=== PATIENT | female | born 2000 | race Hispanic/Latino ===

== ENCOUNTER 2021-02-20 08:08 | Inpatient (IN) | payer SELFPAY ==
[2021-02-20] MEDS ORDERED: Ringers Lactate 1,000 ML IV PRN (08:19)
[2021-02-20] MEDS ORDERED: TERBUTALINE SULF 1 MG/1ML SQ ONE (08:27)
[2021-02-20] MEDS ORDERED: PENICILLIN G POT 5 MU/100 ML VIAL IV ONE (08:27)
[2021-02-20] MEDS ORDERED: Ringers Lactate 1,000 ML IV SCH (09:00)
[2021-02-20 09:06] LABS: Urine Appearance CLEAR (Clear); Urine Bilirubin NEGATIVE (Negative); Urine Blood 2+ (Negative); Urine Color YELLOW (Yellow); Urine Glucose NEGATIVE (Negative); Urine Protein NEGATIVE (Negative); Urine Specific Gravity <=1.005 (1.005-1.030); Urine Urobilinogen 0.2 mg/dL (0.2-1.0); Urine pH 6.5 (5.0-7.0)
[2021-02-20] MEDS ORDERED: PENICILLIN G POT 5 MU/VIAL IV ONE (09:08)
[2021-02-20 09:25] LABS: Absolute Lymphocytes (CBC) 1.3 K/uL (0.7-4.9); Basophils % 0.3 % (0-1.3); Hematocrit 31.4 % (36.0-45.0); Lymphocytes % 13.7 % (15.3-44.8); MPV 12.2 fL (7.6-11.3); RBC Red Blood Cell Count 3.51 M/uL (3.86-4.86)
--- NOTE | 2021-02-20 09:27 | PREOPHP ---
Date of Admission: 02/20/2021 History Of Present Illness: Mana Ribera is a 20-year-old [place] national, no care, came i n by ambulance with bleeding and contractions. Her menstrual history, she is 35 weeks and 3 days. S he has not seen the doctor during the entire . She stated tiffany apparently last night . Family History: Noncontributory. Allergies: NO ALLERGIES NOTED. Physical Examination: Limited physical shows no problems. Baby looks good on the monitor. She is tiffany every 1 to 3 minutes, she is 3 cm. Vertex is sti ll floating. Bag of water I can feel intact. Nitrazine was positive, but she had bloody show, so th at would cause nitrazine to be falsely positive. I do not think the bag of water is broken. We are getting an ultrasound. Her fundal height is slightly less than 35. If she appears to be less than 3 4 weeks by ultrasound, we will probably try to transfer to high-risk center. If she is 35 or more, w e will probably keep her here. I will give her terbutaline at this point since she does not seem to be in extremely active labor. CHAYA/SABI Voice ID: [id number]
[2021-02-20 09:36] LABS: Urine Microscopic Reflex ORDER UMIC
[2021-02-20 09:38] LABS: Urine Bacteria <20 /HPF (<20); Urine RBC <5 /HPF (NONE SEEN)
[2021-02-20] MEDS ORDERED: TERBUTALINE SULF 1 MG/1ML IM ONE (09:52)
[2021-02-20] MEDS ORDERED: BETAMET ACET/BETAMET NA PH 6 MG/ML VIAL IM SCH (10:00)
--- NOTE | 2021-02-20 10:08 | RAD REPORT ---
EXAM DESCRIPTION: US - OB Compl W Biophysical Profile - 02/20/2021 9:51 am CLINICAL HISTORY: Placement and no care COMPARISON: No comparisons FINDINGS: A single cephalic presenting gestation is identified. The 4 chamber heart view has a joann l appearance. Heart rate normal. The intracranial contents and spine are grossly normal. A lef t-sided stomach bubble is seen with normal appearing bladder and kidneys. The 3 vessel cord, inserti on site and anterior abdominal wall have normal appearance. No abnormalities are identifiable. measurements are as follows: BPD:8.42 Centimeters 33 weeks 6 days HC:31.21 Centimeters 34 weeks 6 days AC:32.35 Centimeters 36 weeks 1 day HL:5.70 Centimeters 33 weeks 0 days FL:6.42 Centimeters 33 weeks 1 day The estimated gestational age (EGA) is 34 weeks 1 day with an DOUG of 04/02/2021. ratios are no rmal or within acceptable limits. The placenta is grade II, anterior in location. No low-lying or kennedy centa previa. No suspicion for accreta. The amniotic fluid volume is normal. MAGUE is 12.60 cm. Cervical canal is 3.22 cm. Internal os is closed. Maternal adnexa obscured by large uterine size. Biophysical profile: Movement 2/2 Breathing 2/2 Tone 2/2 Fluid 2/2 Total / IMPRESSION: 1. Single, cephalic gestation with an EGA of 34 weeks 1 day and an DOUG of the 04/02/2021 . 2. No abnormalities are identifiable. ratios are normal or within acceptable limits. 3. Grade II, anterior placenta with no low-lying or placenta previa. No suspicion for accreta. 4. Amniotic fluid volume is normal. MAGUE is 12.60 cm. 5. Biophysical profile score /8.
[2021-02-20 12:18] LABS: Barbiturates NEGATIVE (NEGATIVE); Benzodiazepines NEGATIVE (NEGATIVE); Cocaine NEGATIVE (NEGATIVE); METHAMPHETAM NEGATIVE (NEGATIVE); Methadone NEGATIVE (NEGATIVE); Opiates NEGATIVE (NEGATIVE); Phencyclidine NEGATIVE (NEGATIVE); THC Cannibis NEGATIVE (NEGATIVE)
--- NOTE | 2021-02-20 12:56 | DS ---
A 20-year-old 3, para 1, 34 weeks 1 day according to ultrasound, 35 weeks according to her la menstrual period. No care. Came in to our institution tiffany and very light bloody show. Cervix was 2.5 cm posterior. Nitrazine was positive, but there was blood contamination. My exam showed 2.5 cm, but the vertex and floating. Bag of water could be palpated. She is given Lesly tone, 5 million units of penicillin and 2 doses of terbutaline. Her contractions have stopped. The baby looks good. Cervical exam shows no change. The patient is advised that she can go home if she wishes to do, but that [facility] would probably be a better facility since the baby by either these measur es is premature and would do better at a tertiary care nursery. She will talk with her family and th gisell can decide what she wants to do. She is welcome to stay for several more hours or even overnight if she wishes. Diagnoses: Early premature labor, now halted, Celestone given, antibiotics given. The patient is ad vised to continue with [facility] and get her second Celestone dose tomorrow. CHAYA/SABI Voice ID: [id number] Report ID: [id number]
[2021-02-20 15:07] VITALS: O2SAT 99
[2021-02-20 15:08] VITALS: BP 110/68; TEMP 97.2
[2021-02-20 23:23] LABS: RPR (Rapid Plasma Reagin) NON-REACT (NON-REACT)
[2021-02-25 04:12] LABS: HBsAG Nonreactive (Nonreactive)
== END 2021-02-20 14:40 | disposition home or self-care (01) | DRG 833 ==
LOC: 2ND-WC 08:08
PROVIDERS: ADMIT Specialist; ATTEND Specialist
DX: O26.893 Other specified pregnancy related conditions, third trimester (principal); Z3A.34 34 weeks gestation of pregnancy; Z20.822 Contact with and (suspected) exposure to COVID-19
CPT/HCPCS: 36415; 76805; 76819; 80307; 81003; 81015; 85025; 86592; 87086; 87088; 87340; 99218; G0433; J0702; J2540; J3105; J7120; U0003

== ENCOUNTER 2021-03-06 08:56 | Inpatient (IN) | payer SELFPAY ==
[2021-03-06] MEDS ORDERED: Oxycodone HCl/Acetaminophen 1 TAB TAB PO PRN (09:37)
[2021-03-06] MEDS ORDERED: Tdap (Diph,Pertuss(Acell),Tet Vac) 0.5 ML SYR IMVAC ONE (09:37)
[2021-03-06] MEDS ORDERED: IBUPROFEN 600 MG TAB PO PRN (09:37)
[2021-03-06] MEDS ORDERED: ONDANSETRON 4 MG/2 ML VIAL IV PRN (09:37)
[2021-03-06] MEDS ORDERED: OXYTOCIN/LR 20 UNIT/1,000 ML BAG IV SCH (10:00)
[2021-03-06 10:43] LABS: Basophils % 0.5 % (0-1.3); Hematocrit 29.5 % (36.0-45.0); Lymphocytes % 7.3 % (15.3-44.8); MPV 11.2 fL (7.6-11.3); RBC Red Blood Cell Count 3.18 M/uL (3.86-4.86)
[2021-03-06 11:27] LABS: White Blood Cell Scan OK (OK)
[2021-03-06 11:28] LABS: Blood Morphology Comment NOT SEEN (NOT SEEN); Platelet Estimate ADEQ
[2021-03-06 14:05] VITALS: BMI 24.0
[2021-03-06 21:52] LABS: RPR (Rapid Plasma Reagin) NON-REACT (NON-REACT)
--- NOTE | 2021-03-07 08:41 | DS ---
Hospital Course: A 20-year-old 2, para 1 [place] national, brought in by ambulance after de livering at home, healthy-appearing female, delivered the placenta soon after admission. Inspection of the perineum showed a small first-degree laceration, local infiltration after cleaning the area wi th Betadine and then repair with 2-0 chromic running locked stitch, approximately 4 stitches. Minima l blood loss, estimated to be 300 cc or less that we saw. The patient is Rh positive. Her rubella s tatus is unknown. She has had no care, so we will offer rubella immunization and Tdap. She has been afebrile, ambulating, voiding, lochia is normal. If baby is dismissed today, she will be d ismissed also. She does have an unknown antibody and says she has had no trouble with her blood syst em. Baby does not seem to be having any jaundice or any other problems. Nonetheless, an antibody sc reen will be ordered and she can follow up in my office for her checkup, but right now it does not seem to be anything clinically significant. She requires no analgesics on dismissal. She w as mildly anemic on admission with admission hematocrit of 29.5. HIV was nonreactive. RPR for some reason was not done. If that is part of the normal routine lab, which I think it is we will order it . Final Diagnosis: Extra hospital delivery of a [place] national. No problems to this point. Antibo dy titer and antibody identification pending. CHAYA/ANTWONL Voice ID: [id number] Report ID: [id number]
[2021-03-07] MEDS ORDERED: MEASLES,MUMPS,RUBELLA VAC 0.5ML SQVAC ONE ×2 (10:08→10:35)
[2021-03-07] MEDS ORDERED: Tdap (Diph,Pertuss(Acell),Tet Vac) 0.5 ML SYR IMVAC ONE ×2 (10:08→10:35)
[2021-03-07 11:07] VITALS: BP 99/59; TEMP 96.9
--- NOTE | 2021-03-09 10:34 | PREOPHP ---
Date of Admission: 03/06/2021 History Of Present Illness: This is a 21-year-old Martiniquais female, who delivered home, brought in by ambulance. Baby is doing well. Shortly after admission, placenta was delivered intact. Her uterus was contracted down well. She had a first-degree laceration. The area was cleaned and infiltrated with local anesthetic and then 4 running locked stitches of 2-0 chromic placed. Blood loss at this p oint is estimated to be 300 cc or less. She does not know her blood type or any other type of inform ation. According to ultrasound that she had done here in January, she was supposed to be due April 02, which would make the baby about 36 weeks, but it looks further long. I think she just has a sma ll term size baby. We know really nothing of the family history. She says she has no allergies. Thania huddleston has had no surgeries. She had no complications during her and of course has not been see n during the . First she said without any type of problems. Physical Examination: HEENT: Clear. Pupils equal, round, reactive to light and accommodation. Conjunctivae well perfused . No oral, lingual, or buccal lesions. Chest and Lungs: Normal grossly. Heart: Auscultated by calculus teacher without problems. Breasts: Not examined. She has very thin, normal-sized type person. Extremities: Clear without edema, cyanosis, or clubbing. Assessment And Plan: Essentially healthy female with no care, [place] immigrant, precipito us delivery at home, delivery of the placenta after arrival here and quite stable at this point. We will observe her today, probably send her home tomorrow. Full discussion with the patient today. We will go over tomorrow about and post discharge inst ructions. CHAYA/SABI Voice ID: [id number]
[2021-03-10 03:29] LABS: HBsAG Nonreactive (Nonreactive)
== END 2021-03-07 13:40 | disposition home or self-care (01) | DRG 807 ==
LOC: 2ND-WC 08:56
PROVIDERS: ADMIT Specialist; ATTEND Specialist
PROC: 10E0XZZ Delivery of Products of Conception, External Approach (ICD-10-PCS; principal; 2021-03-06)
PROC: 0HQ9XZZ Repair Perineum Skin, External Approach (ICD-10-PCS; 2021-03-06)
DX: Z39.0 Encounter for care and examination of mother immediately after delivery (principal); Z37.0 Single live birth; O70.0 First degree perineal laceration during delivery; Z3A.36 36 weeks gestation of pregnancy; Z23 Encounter for immunization; Z20.822 Contact with and (suspected) exposure to COVID-19
CPT/HCPCS: 36415; 85025; 86592; 86850; 86900; 86901; 87340; 90471; 90707; 90715; G0433; U0003